=== PATIENT | female | born 1965 | race Two or more races ===

== ENCOUNTER 2016-04-29 07:00 | Day surgery (SDC) | payer OTHER ==
--- NOTE | 2016-04-28 12:44 | HP ---
Rosita Reyez : 1965 HISTORY OF PRESENT ILLNESS: This is a 50-year-old female who was referred for heavy menses with passage of clots for one year duration. The ultrasound done on 01/04/2016 showed a uterus to be 14 x 7.7 x 6.6 cm in greatest dimensions with multiple fibroids. The right ovary was normal. The left ovary was not seen. There also appeared to be at the lower uterine segment a lesion noted 4.3 x 3.6 x 2.5 cm in greatest dimensions. OB HISTORY: Patient is a 4, para 4-0-0-4, four vaginal deliveries. [employer] HISTORY: Menarche 11 x28 x4. She is using oral contraceptives to regulate her periods. PAST MEDICAL HISTORY: She stated is negative, but was using Allopurinol in the past for gout prevention. She states she does not use it anymore. MEDICATIONS: 1. Has been taking iron. 2. Is on Tri-Sprintec. 3. Vitamin D. 4. Vitamin B supplementation. ALLERGIES: Negative. PAST SURGICAL HISTORY: Tubal ligation and cholecystectomy. FAMILY HISTORY: Negative. PHYSICAL EXAMINATION: GENERAL: Is a healthy female in no acute distress. HEENT: Normal. NECK: Supple. Thyroid not palpable. BREAST: Soft, no masses. HEART: Regular sinus rhythm, no murmurs. LUNGS: Clear. ABDOMEN: Benign. PELVIC: External genitalia healthy. Vagina on first exam showed about 2 to 3 mL of blood present. The cervix appeared patulous, closed, and nontender. The uterus was 14 to 16 weeks size, nontender, and anteverted. The adnexa negative. RECTAL: Negative. She had a endometrial biopsy on subsequent visit, however, when inserting the speculum there appeared to be a large cervical fibroid to the left of the cervix. Endometrial biopsy was performed to a depth of 9 cm, however, the specimen was negative for endometrial cells. Her last pap was normal. IMPRESSION: Leiomyoma uteri and abnormal uterine bleeding, and possible cervical fibroid. PLAN: A dilation and curettage, hysteroscopy, and biopsy of vaginal mass. JOB: [id number]
[~2016-04-29 07:00] MED LIST: IV START KIT ONE; LACTATED RINGERS 1,000 ML ONE
[2016-04-29] MEDS ORDERED: LIDOCAINE 1% 2 ML VIAL ID PRN ×2 (07:15→10:04)
[2016-04-29] MEDS ORDERED: LACTATED RINGERS 1,000 ML IV SCH ×3 (07:15→10:15)
[2016-04-29] MEDS ORDERED: LIDOCAINE 2% (MULTI DOSE) 10 ML VIAL ONE (08:49)
[2016-04-29] MEDS ORDERED: PROPOFOL 20 ML IV ONE ×2 (08:49)
[2016-04-29] MEDS ORDERED: MIDAZOLAM HCL 1 MG/ML 2ML VIAL ONE (08:51)
[2016-04-29] MEDS ORDERED: FENTANYL 100 MCG/2 ML VIAL ONE (08:51)
[2016-04-29] MEDS ORDERED: ONDANSETRON 4 MG/2ML 2 ML VIAL ONE (09:10)
[2016-04-29] MEDS ORDERED: DEXAMETHASONE SOD PHOS 4 MG/1 ML VIAL ONE (09:10)
[2016-04-29] MEDS ORDERED: MORPHINE SULFATE 4 MG/ML SYRINGE IV PRN (09:40)
[2016-04-29] MEDS ORDERED: MEPERIDINE 25 MG/ML SYRINGE IV PRN (09:40)
[2016-04-29] MEDS ORDERED: ATROPINE SULFATE 0.4 MG/1 ML VIAL IV PRN (09:40)
[2016-04-29] MEDS ORDERED: ONDANSETRON 4 MG/2ML 2 ML VIAL IV PRN (09:40)
[2016-04-29] MEDS ORDERED: NALOXONE HCL 0.4 MG/ML VIAL IV PRN (09:40)
[2016-04-29] MEDS ORDERED: LABETALOL HCL 5 MG/ML 20ML VIAL IV PRN (09:40)
[2016-04-29] MEDS ORDERED: PROMETHAZINE HCL 25 MG/ML VIAL IM PRN (09:40)
[2016-04-29] MEDS ORDERED: IBUPROFEN 800 MG TABLET PO PRN (10:09)
[2016-04-29] MEDS ORDERED: OXYCODONE/ACETAMINOPHEN 5/325 MG TABLET PO PRN (10:09)
--- NOTE | 2016-04-29 10:09 | PCMBPN ---
Brief Post Op Note: Date of Procedure: 04/29/16 Start Time: Preoperative Diagnosis: 1. leiomyoma uteri, abnormal uterine bleeding, vaginal mass Postoperative Diagnosis: 1. Same and cervical fibroid Procedure: dilation and curettage, hysteroscopy, biopsy of cervical fibroid Surgeon: Shreyas Chan Assist: Anesthesia: ms varela, general Findings: external genitalia heathy, cervix pink and patulous, 3cm mass to left of cervix but attached with a pedicle appears to be a cervical fibroid, uterus 8 weeks size anteverted, adnexa negative, sounded to 8cm scanty currettings, hysteroscopy normal, vagina healthy Condition: stable Complications: IV Fluids: mLs of LR Urine Output: 50 mLs Estimated Blood Loss: less than 10 mLs Tourniquet Time: N/A Specimens: endometrial and endocervical curettings, biopsy of vaginal mass ( cervical fibroid?) Implants: Drains: N/A patient tolerated procedure well and was returned to recovery room in stable condition.
--- NOTE | 2016-04-29 11:37 | OP ---
Rosita Reyez : 09/23/1955 NAME OF OPERATION: Dilation and curettage, hysteroscopy, and a biopsy of cervical fibroid. PREOPERATIVE DIAGNOSES: Leiomyoma uteri, abnormal uterine bleeding, and vaginal mass. POSTOPERATIVE DIAGNOSIS: Leiomyoma uteri, abnormal uterine bleeding, and vaginal mass, plus what appears to be a cervical fibroid. COMPUTER NUMERICAL CONTROL GRINDER: Dr. Shreyas Barraza. ANESTHESIA: Ms. Titus, General. DESCRIPTION OF OPERATION: Dictation begins with the patient under general anesthesia. She was placed in the lithotomy position. The vagina was prepared with Betadine and draped in the usual manner. The bladder was emptied and about 50 mL of clear yellow urine by straight catheterization. Exam under anesthesia revealed the external genitalia healthy, vagina was healthy, the cervix was pink and patulous with a 3 cm mass to the left of the cervix which appeared to be attached to a small pedicle and it is suggestive of a cervical fibroid. The uterus was 8 weeks size and anteverted. Adnexa negative. A duckbill speculum was inserted into the vagina gently. The anterior lip of the cervix grasped with a single prong tenaculum. Curettage from the endocervical canal produced scanty amounts of mucous and blood. Next, the uterus was sounded to 8 cm. The cervix gradually dilated with Ryan dilators and curettage produced scanty endometrial curettings. Hysteroscopic exam was next performed and findings were normal. Deficit of the normal saline was 50 mL. Lastly, the cervical fibroid was grasped with an Allis clamp and then a cervical biopsy instrument was used to take a biopsy from the cervical fibroid. At this point, the procedure ended. The single prong tenaculum and the Allis clamp were removed. There was bleeding noted on the biopsy side on the cervical fibroid, it was cauterized with Silver Nitrate resulting in complete hemostasis and bleeding point on the cervix where the single prong tenaculum had entered was also bleeding and this was also cauterized with Silver Nitrate resulting in complete hemostasis. Now with complete hemostasis the duckbill speculum was removed and the operating was terminated. Estimated blood loss of the entire procedure less than 10 mL. The patient tolerated the procedure well and was returned to recovery room in stable condition. FINAL DIAGNOSIS: 1. Pathology pending. 2. Leiomyoma uteri. 3. Abnormal uterine bleeding. 4. Cervical fibroid. JOB: 2500
--- NOTE | 2016-04-29 11:41 | DS ---
[facility] COURSE: A 50-year-old female admitted with abnormal uterine bleeding, a leiomyoma uteri, and a vaginal mass. She under a dilation and curettage, hysteroscopy, biopsy of what appears to be a cervical fibroid and tolerated the procedure well. She was sent home in good condition. Advised office visit in one week time and activities were explained to the patient prior to her going under anesthesia. Pathology is pending at the time of this dictation. test was negative. Her hemoglobin was normal. FINAL DIAGNOSIS: As above. JOB: 2500
--- NOTE | 2016-05-05 14:36 | SURGPATH ---
[facility] [address] [place] [address] Patient Name: MOIRA VERONICA MR#: [id number] : 1965 Gender: F Specimen #: [id number] Collected: 04/29/2016 Received: 05/04/2016 Reported: 05/05/2016 Submitting Phys: SHIRA NNUES I Copy To Phys: JAREK COREA [facility] Clinical History / Pre-Operative Diagnosis: UTERINE FIBROID; ABNORMAL UTERINE BLEEDING Specimen Source / Surgical Procedure Performed: #1-ENDOCERVICAL CURETTING; #2-ENDOMETRIAL CURETTING; #3-VAGINAL MASS BIOPSY Interpretation: 1, 2. ENDOCERVICAL CURETTINGS, ENDOMETRIAL CURETTING: - NO PATHOLOGIC DIAGNOSIS 3. VAGINAL MASS, BIOPSY: - UNREMARKABLE SQUAMOUS MUCOSA WITH REACTIVE EDEMATOUS FIBROVASCULAR STROMA Electronically Signed Out Manuel Beth M.D. Gross Description: #1 The specimen is received in a formalin filled container labeled with the patient's name and "endocervical curetting". An aggregate of blood tinged mucoid material i I0.8 x 0.5 x 0.2 cm. Totally embedded in cassette #1. #2 The specimen is received in a formalin filled container labeled with the patient's name and "endometrial curetting". An aggregate of fisher tissue admixed with hemorrhagic and mucoid material is 1.3 x 0.8 x 0.4 cm. Totally embedded in cassette #2. #3 The specimen is received in a formalin filled container labeled with the patient's name and "vaginal mass biopsy". An irregular louis-fisher biopsy is 1.0 x 0.6 x 0.2 cm. Trisected. Totally embedded in cassette #3. Dominick Schaefer PDesmond Microscopic Description: 1. Levels contain mucous and strips of benign endocervical glandular epithelium. 2. Levels contain blood and multiple small superficial fragments of benign endometrial glands and stroma. 3. Levels contain unremarkable squamous mucosa and edematous reactive fibrovascular stroma. Malignant features are not identified. 1: 50371 2: 00815 3: 43924 N76.89
== END 2016-04-29 11:35 | disposition home or self-care (01) ==
LOC: SDC 07:00
PROVIDERS: ATTEND Obstetrics & Gynecology
PROC: 0UBC8ZX Excision of Cervix, Via Natural or Artificial Opening Endoscopic, Diagnostic (ICD-10-PCS; principal; 2016-04-29)
PROC: 0UDB8ZZ Extraction of Endometrium, Via Natural or Artificial Opening Endoscopic (ICD-10-PCS; 2016-04-29)
DX: D25.9 Leiomyoma of uterus, unspecified (principal); N93.9 Abnormal uterine and vaginal bleeding, unspecified; D26.0 Other benign neoplasm of cervix uteri; Z79.899 Other long term (current) drug therapy
CPT/HCPCS: 58558; J3010; J1100; J2250; J2405; J7120; J2001